=== PATIENT | male | born 1960 | race African-American/Black ===

== ENCOUNTER 2017-04-09 10:35 | Emergency (ER) | payer OTHER ==
[~2017-04-09] VITALS: Ht 165.1 cm; Wt 79.4 kg
[2017-04-09 10:54] VITALS: BP 127/84
[2017-04-09] MEDS ORDERED: KETOROLAC TROMETH 60MG/2ML VIAL IM ONE (11:00)
[2017-04-09 12:58] LABS: Urine Bilirubin Negative (Negative); Urine Blood Negative /uL (Negative); Urine Color Yellow (Yellow); Urine Glucose Normal (Normal); Urine Ketone Negative (Negative); Urine Nitrite Negative (Negative); Urine RBC <1 /hpf (0 - 3); Urine Urobilinogen Normal (Negative)
== END 2017-04-09 13:29 | disposition home or self-care (01) ==
LOC: ER 10:35
DX: M54.9 Dorsalgia, unspecified (principal); M79.1 Myalgia; F17.210 Nicotine dependence, cigarettes, uncomplicated
CPT/HCPCS: 74176; 81001; 96372; 99285; J1885

== ENCOUNTER 2019-01-11 13:33 | Emergency (ER) | payer SELFPAY ==
[~2019-01-11] VITALS: Ht 165.1 cm; Wt 77.1 kg
[2019-01-11 14:05] VITALS: BP 132/85
== END 2019-01-11 14:41 | disposition home or self-care (01) ==
LOC: ER 13:35
DX: H11.33 Conjunctival hemorrhage, bilateral (principal); F17.210 Nicotine dependence, cigarettes, uncomplicated

== ENCOUNTER 2020-10-18 09:42 | Emergency (ER) | payer MEDICAID, OTHER ==
[~2020-10-18] VITALS: Ht 165.1 cm; Wt 80.7 kg
[2020-10-18 11:56] VITALS: BP 145/88
== END 2020-10-18 12:07 | disposition home or self-care (01) ==
LOC: ER 09:42
DX: M16.11 Unilateral primary osteoarthritis, right hip (principal); M76.62 Achilles tendinitis, left leg
CPT/HCPCS: 73502; 73610